=== PATIENT | female | born 1985 | race Caucasian/White ===

== ENCOUNTER 2019-03-26 21:20 | Inpatient (IN) | payer BC, MEDICAID ==
[2019-03-26 22:22] LABS: ADD MAN DIFF? NO
[2019-03-26 22:26] LABS: ABNORMAL IP MESSAGE 1; BASOPHILS % 0.8 % (0.0-2.0); HEMATOCRIT 32.2 % (37.0-47.0); HEMOGLOBIN 10.8 g/dl (12.0-16.0); LYMPHOCYTES # 0.3 10^3/ul (0.8-2.9); LYMPHOCYTES % 6.9 % (15.0-51.0); MEAN CORPUSCULAR HEMOGLOBIN 28.3 pg (29.0-33.0); MEAN CORPUSCULAR HGB CONC 33.5 g/dl (32.0-37.0); MEAN CORPUSCULAR VOLUME 84.5 fl (82.0-101.0); MEAN PLATELET VOLUME 12.8 fl (7.4-10.4); MONOCYTE # 0.4 10^3/ul (0.3-0.9); MONOCYTES % 8.1 % (0.0-11.0); NEUTROPHIL # 4.2 10^3/ul (1.6-7.5); NEUTROPHILS % 83.8 % (39.0-77.0); PLATELET COUNT 136 10^3/UL (140-415); RED BLOOD COUNT 3.81 10^6/ul (4.20-5.40); RED CELL DISTRIBUTION WIDTH 13.5 % (11.5-14.5)
[2019-03-26 22:30] LABS: POSITIVE DIFF @See below
[2019-03-26 22:31] LABS: INR 0.96; PROTIME 12.9 Sec (11.9-14.9)
[2019-03-26 22:32] LABS: ADD UMIC YES; PARTIAL THROMBOPLASTIN TIME 32.1 Sec (23.0-35.0); UR ASCORBIC ACID NEGATIVE (NEGATIVE); UR BILIRUBIN (Dip) NEGATIVE (NEGATIVE); UR BLOOD (Dip) 2+ mg/dL (NEGATIVE); UR CLARITY CLOUDY (CLEAR); UR COLOR YELLOW (YELLOW); UR GLUCOSE (Dip) NEGATIVE (NEGATIVE); UR KETONES (Dip) NEGATIVE (NEGATIVE); UR LEUKOCYTE ESTERASE (Dip) 2+ Leu/ul (NEGATIVE); UR NITRITE (Dip) NEGATIVE (NEGATIVE); UR RBC 5 /HPF (0-5); UR SPECIFIC GRAVITY (Dip) 1.024 (1.003-1.030); UR SQUAMOUS EPITHELIAL CELL FEW /HPF (FEW); UR TOTAL PROTEIN (Dip) NEGATIVE (NEGATIVE); UR UROBILINOGEN (Dip) NEGATIVE (NEGATIVE); UR WBC 17 /HPF (0-5)
[2019-03-26] MEDS: SODIUM CHLORIDE 0.9% 1L BAG IV* (22:34)
[2019-03-26] MEDS: CEFTRIAXONE 1 GM/50 ML (PMX) 50 ML IVPB (22:35)
[2019-03-26] MEDS: KETOROLAC 30 MG INJ IV (22:37)
[2019-03-26] MEDS: ACETAMINOPHEN 325 MG TAB PO (22:37)
[2019-03-26 22:38] LABS: ALANINE AMINOTRANSFERASE 29 IU/L (13-69); ALBUMIN 4.1 g/dl (3.3-4.9); ALBUMIN/GLOBULIN RATIO 1.24; ALKALINE PHOSPHATASE 49 IU/L (42-121); ANION GAP 12 (5-13); ASPARTATE AMINO TRANSFERASE 29 IU/L (15-46); BILIRUBIN,INDIRECT 0.5 mg/dl (0-1.1); BILIRUBIN,TOTAL 0.5 mg/dl (0.2-1.3); BLOOD UREA NITROGEN 14 mg/dl (7-20); CALCIUM 8.8 mg/dl (8.4-10.2); CARBON DIOXIDE 23 mmol/L (21-31); CHLORIDE 100 mmol/L (97-110); CREATININE 0.67 mg/dl (0.44-1.00); Estimated GFR > 60 mL/min (>60); GLUCOSE 133 mg/dl (70-220); POTASSIUM 3.6 mmol/L (3.5-5.1); SODIUM 135 mmol/L (135-144); TOTAL PROTEIN 7.4 g/dl (6.1-8.1)
[2019-03-26 22:50] LABS: TROPONIN-I < 0.012 ng/ml (0.000-0.120)
[2019-03-27] MEDS ORDERED: ACETAMINOPHEN 325 MG TAB PO
[2019-03-27 00:10] LABS: PROCALCITONIN 1.08 ng/mL (0.00-0.10)
[2019-03-27] MEDS ORDERED: hydrALAzine 20 MG INJ IV (00:30)
[2019-03-27] MEDS ORDERED: ALBUTEROL/IPRATROPIUM (NEB) 3 ML AMP HHN (00:30)
[2019-03-27] MEDS ORDERED: DOCUSATE SODIUM 100 MG CAP PO (00:30)
[2019-03-27] MEDS ORDERED: NITROGLYCERIN (SL) 0.4 MG TAB SL (00:30)
[2019-03-27] MEDS ORDERED: morphine 2 MG INJ IV (00:30)
[2019-03-27] MEDS ORDERED: LORAZEPAM 2 MG INJ IV (00:30)
[2019-03-27] MEDS ORDERED: NACL 0.9% 3 ML SYG IV (00:30)
[2019-03-27] MEDS ORDERED: ONDANSETRON 4 MG INJ IV ×2 (00:30)
[2019-03-27] MEDS ORDERED: MAGNESIUM HYDROXIDE 30ML CUP PO (00:30)
[2019-03-27] MEDS: DOXYCYCLINE 100 MG in SOD CHLORIDE 0.9% 250 ML IVPB ×3 (00:45→20:55)
[2019-03-27 00:55] LABS: LACTIC ACID 0.9 mmol/L (0.5-2.0)
[2019-03-27] MEDS: SOD CHLORIDE 0.9% 1,000 ML IV ×3 (01:57→15:17)
[2019-03-27] MEDS: HYDROCODONE/APAP (5/325) TAB PO ×3 (01:57→21:49)
[2019-03-27 02:09] LABS: FREE T4 (FREE THYROXINE) 1.34 ng/dl (0.79-2.35)
[2019-03-27 06:39] LABS: PROTIME 14.3 Sec (11.9-14.9); PT RATIO 1.1
[2019-03-27 06:40] LABS: PARTIAL THROMBOPLASTIN TIME 36.8 Sec (23.0-35.0)
[2019-03-27 06:56] LABS: LACTIC ACID 0.8 mmol/L (0.5-2.0)
[2019-03-27] MEDS ORDERED: HEPARIN 5,000 UNIT/1 ML VIAL SC (09:00)
[2019-03-27] MEDS: LEVOFLOXACIN 750MG/D5W (PMX) 150 ML IVPB (12:29)
[2019-03-27 13:29] LABS: TOTAL IRON BINDING CAPACITY 341 ug/dl (241-421)
[2019-03-27] MEDS: MEROPENEM 1 GM/50ML(PMX) 50 ML IVPB ×2 (13:55→22:20)
[2019-03-27 14:09] LABS: HEPATITIS C VIRAL ANTIBODY NEGATIVE (NEGATIVE)
[2019-03-27 15:04] LABS: % IRON SATURATION 8 % SAT (22-52); IRON 26 ug/dl (35-150)
[2019-03-27] MEDS: ACETAMINOPHEN 325 MG TAB PO (15:17)
[2019-03-27] MEDS: MISOPROSTOL 200 MCG TAB PO (21:21)
[2019-03-27] MEDS ORDERED: CEFTRIAXONE 1 GM/50 ML (PMX) 50 ML IVPB (22:00)
[2019-03-28] MEDS: SOD CHLORIDE 0.9% 1,000 ML IV ×3 (03:09→13:43)
[2019-03-28] MEDS: ACETAMINOPHEN 325 MG TAB PO ×4 (03:58→22:52)
[2019-03-28] MEDS: MEROPENEM 1 GM/50ML(PMX) 50 ML IVPB ×3 (05:29→22:51)
[2019-03-28 05:32] LABS: ABNORMAL IP MESSAGE 1; HEMATOCRIT 29.4 % (37.0-47.0); HEMOGLOBIN 9.9 g/dl (12.0-16.0); MEAN CORPUSCULAR HEMOGLOBIN 28.2 pg (29.0-33.0); MEAN CORPUSCULAR HGB CONC 33.7 g/dl (32.0-37.0); MEAN CORPUSCULAR VOLUME 83.8 fl (82.0-101.0); MEAN PLATELET VOLUME 13.1 fl (7.4-10.4); PLATELET COUNT 118 10^3/UL (140-415); RED BLOOD COUNT 3.51 10^6/ul (4.20-5.40); RED CELL DISTRIBUTION WIDTH 13.7 % (11.5-14.5)
[2019-03-28 05:32] LABS: WHITE BLOOD COUNT 4.2 10^3/ul (4.8-10.8)
[2019-03-28 05:40] LABS: ADD MAN DIFF? YES; POSITIVE DIFF @See below
[2019-03-28 06:32] LABS: CHOLESTEROL 166 mg/dl (100-200)
[2019-03-28 06:32] LABS: CHOL/HDL RATIO 2.7 RATIO; HDL CHOLESTEROL 61 mg/dl (34-82); LDL CHOLESTEROL,CALCULATED 86 mg/dl; TRIGLYCERIDES 93 mg/dl (0-149)
[2019-03-28 06:37] LABS: ANION GAP 9 (5-13); BLOOD UREA NITROGEN 6 mg/dl (7-20); CALCIUM 8.7 mg/dl (8.4-10.2); CARBON DIOXIDE 22 mmol/L (21-31); CHLORIDE 105 mmol/L (97-110); CREATININE 0.63 mg/dl (0.44-1.00); Estimated GFR > 60 mL/min (>60); GLUCOSE 88 mg/dl (70-220); MAGNESIUM 1.8 mg/dl (1.7-2.5); PHOSPHORUS 2.3 mg/dl (2.5-4.9); POTASSIUM 3.5 mmol/L (3.5-5.1); SODIUM 136 mmol/L (135-144)
[2019-03-28] MEDS ORDERED: LIDOCAINE 2% (SDV) 5 ML INJ (07:00)
[2019-03-28] MEDS ORDERED: CEFAZOLIN 1 GM INJ (07:00)
[2019-03-28 07:50] LABS: HEMOGLOBIN A1C 5.2 % (0-5.9)
[2019-03-28 08:07] LABS: THYROID STIMULATING HORMONE 0.067 MIU/L (0.465-4.680)
[2019-03-28] MEDS: DOXYCYCLINE 100 MG in SOD CHLORIDE 0.9% 250 ML IVPB ×2 (08:38→21:28)
[2019-03-28 10:33] LABS: ANISOCYTOSIS 1+ (0-0); BAND NEUTROPHILS #M 1.5 10^3/ul (0.0-0.6); BAND NEUTROPHILS % (M) 36 % (0-4); LYMPHOCYTES #M 0.2 10^3/ul (0.8-2.9); LYMPHOCYTES % (M) 7 % (15-51); MICROCYTOSIS 1+ (0-0); MONOCYTE #M 0.2 10^3/ul (0.3-0.9); MONOCYTES % (M) 6 % (0-11); MYELOCYTES % (M) 2 % (0-0); PLATELET ESTIMATE DECREASED; POIKILOCYTOSIS 1+ (0-0); POLYCHROMASIA 2+ (0-0); SEG NEUT #M 2.1 10^3/ul (1.6-7.5); SEGMENTED NEUTROPHILS (M) % 49 % (39-77); SMUDGE%M 3 % (0-0)
[2019-03-28] MEDS ORDERED: MIDAZOLAM 1 MG/ML 2 ML INJ (14:18)
[2019-03-28] MEDS ORDERED: FENTAnyl 50 MCG/ML VIAL (14:18)
[2019-03-28] MEDS ORDERED: ONDANSETRON 4 MG INJ (14:20)
[2019-03-28] MEDS ORDERED: METOCLOPRAMIDE 10 MG INJ (14:20)
[2019-03-28] MEDS ORDERED: PROPOFOL 20 ML (14:22)
[2019-03-28] MEDS ORDERED: OXYTOCIN 10 UNIT INJ (14:30)
[2019-03-28] MEDS ORDERED: KETOROLAC 30 MG INJ (14:32)
[2019-03-28] MEDS ORDERED: MEPERIDINE 25 MG INJ IV (15:00)
[2019-03-28] MEDS ORDERED: ONDANSETRON 4 MG INJ IV (15:00)
[2019-03-28] MEDS ORDERED: HYDROmorphONE 1 MG/5 ML IV SYRINGE IV ×3 (15:00)
[2019-03-28] MEDS ORDERED: MIDAZOLAM 1 MG/ML 2 ML INJ IV (15:00)
[2019-03-28] MEDS ORDERED: LORAZEPAM 2 MG INJ IV (15:00)
[2019-03-28] MEDS ORDERED: DIPHENHYDRAMINE 50 MG INJ IV (15:00)
[2019-03-28] MEDS ORDERED: METOCLOPRAMIDE 10 MG INJ IV (15:00)
[2019-03-28] MEDS: LACTATED RINGER'S 1,000 ML IV (16:23)
[2019-03-28] MEDS: SOD FERRIC GLUC COMPLX 125 MG in SOD CHLORIDE 0.9% 100 ML IVPB (18:45)
[2019-03-28 20:10] LABS: RAPID PLASMA REAGIN REACTIVE (NR)
[2019-03-29] MEDS: SOD CHLORIDE 0.9% 1,000 ML IV ×2 (02:26→12:26)
[2019-03-29] MEDS: MEROPENEM 1 GM/50ML(PMX) 50 ML IVPB ×3 (05:41→23:26)
[2019-03-29 06:07] LABS: ADD MAN DIFF? NO
[2019-03-29 06:32] LABS: WHITE BLOOD COUNT 4.5 10^3/ul (4.8-10.8)
[2019-03-29 06:32] LABS: HEMATOCRIT 27.1 % (37.0-47.0); HEMOGLOBIN 9.1 g/dl (12.0-16.0)
[2019-03-29 06:33] LABS: ABNORMAL IP MESSAGE 1; BASOPHILS % 0.7 % (0.0-2.0); EOSINOPHILS # 0.1 10^3/ul (0.0-0.5); EOSINOPHILS % 1.6 % (0.0-7.0); LYMPHOCYTES # 0.7 10^3/ul (0.8-2.9); LYMPHOCYTES % 16.6 % (15.0-51.0); MEAN CORPUSCULAR HEMOGLOBIN 28.4 pg (29.0-33.0); MEAN CORPUSCULAR HGB CONC 33.6 g/dl (32.0-37.0); MEAN CORPUSCULAR VOLUME 84.7 fl (82.0-101.0); MONOCYTE # 0.6 10^3/ul (0.3-0.9); MONOCYTES % 12.5 % (0.0-11.0); NEUTROPHIL # 3.1 10^3/ul (1.6-7.5); NEUTROPHILS % 68.4 % (39.0-77.0); PLATELET COUNT 117 10^3/UL (140-415); RED CELL DISTRIBUTION WIDTH 13.8 % (11.5-14.5)
[2019-03-29 06:45] LABS: POSITIVE DIFF @See below
[2019-03-29 07:08] LABS: ANION GAP 6 (5-13); BLOOD UREA NITROGEN 10 mg/dl (7-20); CALCIUM 8.3 mg/dl (8.4-10.2); CARBON DIOXIDE 25 mmol/L (21-31); CHLORIDE 110 mmol/L (97-110); Estimated GFR > 60 mL/min (>60); GLUCOSE 94 mg/dl (70-220); POTASSIUM 3.7 mmol/L (3.5-5.1); SODIUM 141 mmol/L (135-144)
[2019-03-29] MEDS: ACETAMINOPHEN 325 MG TAB PO ×2 (07:31→17:47)
[2019-03-29] MEDS: DOXYCYCLINE 100 MG in SOD CHLORIDE 0.9% 250 ML IVPB ×2 (09:02→21:33)
[2019-03-29 10:55] LABS: THYROID STIMULATING HORMONE 0.116 MIU/L (0.465-4.680)
[2019-03-29 12:09] LABS: FREE T4 (FREE THYROXINE) 1.58 ng/dl (0.79-2.35)
[2019-03-29] MEDS: HYDROCODONE/APAP (5/325) TAB PO ×2 (12:48→21:33)
[2019-03-29] MEDS: SOD FERRIC GLUC COMPLX 125 MG in SOD CHLORIDE 0.9% 100 ML IVPB (12:50)
[2019-03-29] MEDS: LACTATED RINGER'S 1,000 ML IV (14:54)
[2019-03-30] MEDS: MEROPENEM 1 GM/50ML(PMX) 50 ML IVPB (05:41)
[2019-03-30 06:00] LABS: ADD MAN DIFF? NO
[2019-03-30 06:08] LABS: ABNORMAL IP MESSAGE 1; BASOPHILS % 1.4 % (0.0-2.0); EOSINOPHILS # 0.2 10^3/ul (0.0-0.5); EOSINOPHILS % 7.8 % (0.0-7.0); HEMATOCRIT 29.1 % (37.0-47.0); HEMOGLOBIN 9.5 g/dl (12.0-16.0); LYMPHOCYTES # 1.4 10^3/ul (0.8-2.9); LYMPHOCYTES % 49.1 % (15.0-51.0); MEAN CORPUSCULAR HEMOGLOBIN 27.8 pg (29.0-33.0); MEAN CORPUSCULAR HGB CONC 32.6 g/dl (32.0-37.0); MEAN CORPUSCULAR VOLUME 85.1 fl (82.0-101.0); MEAN PLATELET VOLUME 13.5 fl (7.4-10.4); MONOCYTE # 0.4 10^3/ul (0.3-0.9); MONOCYTES % 14.3 % (0.0-11.0); NEUTROPHIL # 0.8 10^3/ul (1.6-7.5); NEUTROPHILS % 26.4 % (39.0-77.0); PLATELET COUNT 175 10^3/UL (140-415); RED BLOOD COUNT 3.42 10^6/ul (4.20-5.40); RED CELL DISTRIBUTION WIDTH 14.3 % (11.5-14.5)
[2019-03-30 06:08] LABS: WHITE BLOOD COUNT 2.9 10^3/ul (4.8-10.8)
[2019-03-30 06:12] LABS: POSITIVE DIFF @See below
[2019-03-30 06:47] LABS: PHOSPHORUS 3.9 mg/dl (2.5-4.9)
[2019-03-30 06:47] LABS: ANION GAP 6 (5-13); BLOOD UREA NITROGEN 8 mg/dl (7-20); CALCIUM 8.6 mg/dl (8.4-10.2); CARBON DIOXIDE 27 mmol/L (21-31); CHLORIDE 109 mmol/L (97-110); CREATININE 0.57 mg/dl (0.44-1.00); Estimated GFR > 60 mL/min (>60); GLUCOSE 81 mg/dl (70-220); MAGNESIUM 1.9 mg/dl (1.7-2.5); POTASSIUM 4.1 mmol/L (3.5-5.1); SODIUM 142 mmol/L (135-144)
[2019-03-30] MEDS: DOXYCYCLINE 100 MG in SOD CHLORIDE 0.9% 250 ML IVPB (08:45)
[2019-03-30] MEDS: ACETAMINOPHEN 325 MG TAB PO (08:53)
[2019-03-30] MEDS: SOD FERRIC GLUC COMPLX 125 MG in SOD CHLORIDE 0.9% 100 ML IVPB (12:58)
[2019-03-31 17:36] LABS: FLUORESCENT TREPONEMAL AB NON-REACTIVE (NON-REACTIVE)
== END 2019-03-30 13:15 | disposition home or self-care (01) | DRG 770 ==
LOC: 2NE 03-28 11:07 → E/R 21:20
PROC: 10D17ZZ Extraction of Products of Conception, Retained, Via Natural or Artificial Opening (ICD-10-PCS; principal; 2019-03-28 14:00)
DX: O03.37 Sepsis following incomplete spontaneous abortion (principal); A41.51 Sepsis due to Escherichia coli [E. coli]; O04.88 Urinary tract infection following (induced) termination of pregnancy; B96.20 Unspecified Escherichia coli [E. coli] as the cause of diseases classified elsewhere; O04.89 (Induced) termination of pregnancy with other complications; D50.0 Iron deficiency anemia secondary to blood loss (chronic)
CPT/HCPCS: 36415; 71045; 74176; 76801; 76856; 80048; 80053; 80061; 81001; 81025; 82728; 83036; 83540; 83605; 83735; 84100; 84145; 84439; 84443; 84484; 84702; 85025; 85610; 85730; 86592; 86803; 87040-91; 87086; 88305; 93005; 96374; 96375; 99285-25